=== PATIENT | female | born 1990 | race Caucasian/White ===

== ENCOUNTER 2016-06-19 23:07 | Emergency (ER) | payer BC ==
[~2016-06-19] VITALS: Ht 162.6 cm; Wt 65.8 kg
[2016-06-19 23:31] VITALS: BP 125/80
[2016-06-20] MEDS ORDERED: ACETAMINOPHEN 500 MG TAB PO ONE (01:45)
== END 2016-06-20 01:41 | disposition home or self-care (01) ==
LOC: ER 23:12
DX: O26.893 Other specified pregnancy related conditions, third trimester (principal); S50.11XA Contusion of right forearm, initial encounter; Z3A.36 36 weeks gestation of pregnancy; W01.0XXA Fall on same level from slipping, tripping and stumbling without subsequent striking against object, initial encounter; Y93.01 Activity, walking, marching and hiking; Y99.8 Other external cause status; Y92.096 Garden or yard of other non-institutional residence as the place of occurrence of the external cause
CPT/HCPCS: 73090; 76805